=== PATIENT | male | born 1945 | race Caucasian/White ===

== ENCOUNTER 2022-05-22 14:49 | Outpatient (CLI) | payer MEDICARE, BC ==
[2022-05-22 16:27] LABS: Hemoglobin 12.6 g/dL (13.5-17.5); Mean Corpuscular HGB CONC 34.4 g/dL (32.0-36.0); Mean Corpuscular Hemoglobin 30.2 pg (27.0-33.0); Mean Corpuscular Volume 87.8 fl (81.2-95.1); Mean Platelet Volume 11.1 fl (7.4-10.4); Platelet Count 173 10x3/uL (150-450); RBC Distribution Width 15.6 % (11.5-14.5); Red Blood Cell (RBC) Count 4.17 10x6/uL (4.32-5.72); White Blood Cell (WBC) Count 7.7 10x3/uL (3.5-10.5)
[2022-05-22 16:51] LABS: PTT 27.7 sec (22.0-33.0); Prothrombin Time 10.9 sec (9.5-12.1)
[2022-05-22 16:56] LABS: Anion Gap 17 mmol/L (10-20); BUN (Urea Nitrogen) 20 mg/dL (8.4-25.7); Calc. Creatinine Clearance 0 mL/min (70-130); Calcium 9.5 mg/dL (7.8-10.44); Carbon Dioxide 25 mmol/L (23-31); Chloride 101 mmol/L (98-107); Estimated GFR 39; Glucose 252 mg/dL (83-110); Potassium 4.4 mmol/L (3.5-5.1); Sodium 139 mmol/L (136-145)
== END 2022-05-22 14:50 | disposition home or self-care (01) ==
LOC: CSHLAB 14:49
PROVIDERS: ATTEND Orthopaedic Surgery
DX: Z01.812 Encounter for preprocedural laboratory examination (principal); Z20.822 Contact with and (suspected) exposure to COVID-19; M17.12 Unilateral primary osteoarthritis, left knee
CPT/HCPCS: 80048; 85027; 85610; 85730; 87811

== ENCOUNTER 2022-05-22 15:00 | Inpatient (IN) | payer MEDICARE, BC ==
[2022-05-27] MEDS ORDERED: EPINEPHrine 1 MG/ML AMP ONE (08:12)
[2022-05-27] MEDS ORDERED: Bupivacaine 0.25% HCL 30 ML VIAL ONE (08:12)
[2022-05-27] MEDS ORDERED: Neomycin-Polymyxin 1 ML AMP ONE (08:13)
[2022-05-27] MEDS ORDERED: Vancomycin 1.5 GRAM/300 ML BAG 1.5 GM in Premix Bag 1 BAG IVPB SCH ×2 (08:30→20:30)
[2022-05-27] MEDS ORDERED: Midazolam HCl 2 mg/2 ml Vial ONE ×3 (08:46→12:56)
[2022-05-27] MEDS ORDERED: Fentanyl 100 MCG/2 ML VIAL ONE ×3 (08:47→11:37)
[2022-05-27] MEDS ORDERED: Lidocaine 1% PF 5 ML VIAL ONE ×2 (08:48→09:32)
[2022-05-27] MEDS ORDERED: Ropivacaine 0.2% HCl/PF 40 ML ONE (08:49)
[2022-05-27] MEDS ORDERED: Tranexamic Acid 1,000 MG/10 ML VIAL ONE (08:54)
[2022-05-27] MEDS ORDERED: Bupivacaine PF 0.5% 30 ML VIAL ONE (09:22)
[2022-05-27] MEDS ORDERED: Clindamycin/D5W 900 mg/50 ml Premix Bag ONE (09:31)
[2022-05-27] MEDS ORDERED: PROPOFOL 20 ML ONE (09:32)
[2022-05-27] MEDS ORDERED: Propofol 1,000 MG/100 ML VIAL IV ONE (09:34)
[2022-05-27] MEDS ORDERED: ePHEDrine Sulfate 50 MG/10 ML VIAL ONE (10:03)
[2022-05-27] MEDS ORDERED: PHENYLEPHRINE-NS 100 MCG/ML 10 ML SYRINGE ONE (10:09)
[2022-05-27] MEDS ORDERED: Ondansetron PF 4 MG/2 ML Vial ONE (11:18)
[2022-05-27] MEDS ORDERED: Promethazine HCl 25 MG/ML VIAL IM PRN (11:46)
[2022-05-27] MEDS ORDERED: Ondansetron HCl/PF 4 MG/2 ML Vial IVP PRN (11:46)
[2022-05-27] MEDS ORDERED: Promethazine HCl 25 MG/ML VIAL IVPB PRN (11:46)
[2022-05-27] MEDS ORDERED: Rocuronium Bromide 10 MG/ML (10ML VIAL) ONE (12:00)
[2022-05-27] MEDS ORDERED: Acetaminophen 325 MG TAB PO PRN (13:15)
[2022-05-27] MEDS ORDERED: Ondansetron PF 4 MG/2 ML Vial IM PRN (13:15)
[2022-05-27] MEDS ORDERED: Cepastat Lozenges 1 LOZ PO PRN (13:18)
[2022-05-27] MEDS ORDERED: Milk Of Magnesia 30 ML UDCUP PO PRN (13:18)
[2022-05-27] MEDS ORDERED: Morphine 2 MG/ML VIAL SLOW IVP PRN (13:20)
[2022-05-27] MEDS ORDERED: Dextrose 5% in Water 1,000 ML IV PRN (13:30)
[2022-05-27] MEDS ORDERED: Insulin Regular 300 UNITS/3 ML VIAL SC PRN (13:30)
[2022-05-27] MEDS ORDERED: Dextrose 50% Abboject 50 ML SYRINGE IVP PRN (13:30)
[2022-05-27] MEDS: Morphine 4 MG/ML VIAL SLOW IVP PRN ×2 (14:18→17:19)
[2022-05-27] MEDS: Sodium Chloride 0.9% 1,000 ML IV SCH ×2 (14:19→21:58)
[2022-05-27] MEDS: glyBURIDE 5 MG TAB PO SCH (17:18)
[2022-05-27] MEDS: metFORMIN 500 MG TAB PO SCH (17:18)
[2022-05-27] MEDS: Gabapentin 300 MG CAP PO SCH (21:40)
[2022-05-27] MEDS: Aspirin 81 mg Enteric Coated Tablet PO SCH (21:40)
[2022-05-27] MEDS: Atenolol 25 MG TAB PO SCH (21:40)
[2022-05-27] MEDS: Atorvastatin Calcium 10 MG TAB PO SCH (21:41)
[2022-05-28] MEDS: Morphine 4 MG/ML VIAL SLOW IVP PRN ×2 (03:25→09:11)
[2022-05-28 06:49] LABS: Hemoglobin 10.7 g/dL (13.5-17.5); Mean Corpuscular HGB CONC 33.5 g/dL (32.0-36.0); Mean Corpuscular Hemoglobin 30.6 pg (27.0-33.0); Mean Corpuscular Volume 91.1 fl (81.2-95.1); Mean Platelet Volume 10.7 fl (7.4-10.4); Platelet Count 142 10x3/uL (150-450); RBC Distribution Width 15.5 % (11.5-14.5); White Blood Cell (WBC) Count 13.4 10x3/uL (3.5-10.5)
[2022-05-28] MEDS ORDERED: Lidocaine 2% PF 100 mg/5 ml Syringe IVP SCH (07:00)
[2022-05-28] MEDS ORDERED: Lidocaine 2% Jelly 5 ML TUBE ONE (07:00)
[2022-05-28] MEDS ORDERED: Levofloxacin 500 mg/D5W 100 ml Premix Bag ONE (07:04)
[2022-05-28] MEDS: Senokot S 8.6-50 MG TAB PO SCH ×2 (09:05→20:40)
[2022-05-28] MEDS: Furosemide 40 MG TAB PO SCH (09:06)
[2022-05-28] MEDS: Clopidogrel Bisulfate 75 MG TAB PO SCH (09:06)
[2022-05-28] MEDS: Aspirin 81 mg Enteric Coated Tablet PO SCH ×2 (09:06→20:41)
[2022-05-28] MEDS: Gabapentin 300 MG CAP PO SCH ×2 (09:07→20:41)
[2022-05-28] MEDS: metFORMIN 500 MG TAB PO SCH ×2 (09:07→09:09)
[2022-05-28] MEDS: Multivitamin W/ Minerals 1 TAB PO SCH (09:08)
[2022-05-28] MEDS: Tamsulosin HCl 0.4 MG CAP PO SCH (09:08)
[2022-05-28] MEDS: Allopurinol 100 MG TAB PO SCH (09:09)
[2022-05-28] MEDS: Cyanocobalamin (Vitamin B-12) 1,000 MCG TAB PO SCH (09:09)
[2022-05-28] MEDS: Atenolol 25 MG TAB PO SCH ×2 (09:20→20:40)
[2022-05-28] MEDS: glyBURIDE 5 MG TAB PO SCH ×2 (09:30→16:10)
[2022-05-28] MEDS: Ibuprofen 600 MG TAB PO PRN (13:10)
[2022-05-28] MEDS: Atorvastatin Calcium 10 MG TAB PO SCH (20:40)
[2022-05-29 03:48] LABS: Hemoglobin 10.1 g/dL (13.5-17.5); Mean Corpuscular HGB CONC 34.4 g/dL (32.0-36.0); Mean Corpuscular Hemoglobin 30.7 pg (27.0-33.0); Mean Corpuscular Volume 89.4 fl (81.2-95.1); Mean Platelet Volume 10.7 fl (7.4-10.4); Platelet Count 119 10x3/uL (150-450); RBC Distribution Width 15.6 % (11.5-14.5); Red Blood Cell (RBC) Count 3.29 10x6/uL (4.32-5.72)
[2022-05-29] MEDS: Aspirin 81 mg Enteric Coated Tablet PO SCH ×2 (09:10→21:06)
[2022-05-29] MEDS: Atenolol 25 MG TAB PO SCH ×2 (09:10→21:05)
[2022-05-29] MEDS: Furosemide 40 MG TAB PO SCH (09:10)
[2022-05-29] MEDS: Allopurinol 100 MG TAB PO SCH (09:10)
[2022-05-29] MEDS: Multivitamin W/ Minerals 1 TAB PO SCH (09:10)
[2022-05-29] MEDS: Senokot S 8.6-50 MG TAB PO SCH ×2 (09:10→21:06)
[2022-05-29] MEDS: Tamsulosin HCl 0.4 MG CAP PO SCH (09:10)
[2022-05-29] MEDS: glyBURIDE 5 MG TAB PO SCH ×2 (09:10→17:52)
[2022-05-29] MEDS: Clopidogrel Bisulfate 75 MG TAB PO SCH (09:10)
[2022-05-29] MEDS: Cyanocobalamin (Vitamin B-12) 1,000 MCG TAB PO SCH (09:10)
[2022-05-29] MEDS: Gabapentin 300 MG CAP PO SCH ×2 (09:10→21:06)
[2022-05-29] MEDS: metFORMIN 500 MG TAB PO SCH ×2 (09:10→17:52)
[2022-05-29] MEDS: Atorvastatin Calcium 10 MG TAB PO SCH (21:06)
[2022-05-30 04:50] LABS: Mean Corpuscular HGB CONC 34.6 g/dL (32.0-36.0); Mean Corpuscular Hemoglobin 30.7 pg (27.0-33.0); Mean Corpuscular Volume 88.7 fl (81.2-95.1); Mean Platelet Volume 11.2 fl (7.4-10.4); Platelet Count 128 10x3/uL (150-450); RBC Distribution Width 15.2 % (11.5-14.5); Red Blood Cell (RBC) Count 3.26 10x6/uL (4.32-5.72); White Blood Cell (WBC) Count 10.9 10x3/uL (3.5-10.5)
[2022-05-30] MEDS: glyBURIDE 5 MG TAB PO SCH ×2 (08:19→17:40)
[2022-05-30] MEDS: Allopurinol 100 MG TAB PO SCH (08:20)
[2022-05-30] MEDS: Aspirin 81 mg Enteric Coated Tablet PO SCH ×2 (08:20→20:49)
[2022-05-30] MEDS: metFORMIN 500 MG TAB PO SCH ×2 (08:20→17:40)
[2022-05-30] MEDS: Gabapentin 300 MG CAP PO SCH ×2 (08:21→20:50)
[2022-05-30] MEDS: Clopidogrel Bisulfate 75 MG TAB PO SCH (08:21)
[2022-05-30] MEDS: Furosemide 40 MG TAB PO SCH (08:23)
[2022-05-30] MEDS: Atenolol 25 MG TAB PO SCH ×2 (08:23→20:49)
[2022-05-30] MEDS: Multivitamin W/ Minerals 1 TAB PO SCH (08:24)
[2022-05-30] MEDS: Cyanocobalamin (Vitamin B-12) 1,000 MCG TAB PO SCH (08:24)
[2022-05-30] MEDS: Senokot S 8.6-50 MG TAB PO SCH ×2 (08:24→20:50)
[2022-05-30] MEDS: Ibuprofen 600 MG TAB PO PRN (08:24)
[2022-05-30] MEDS: Tamsulosin HCl 0.4 MG CAP PO SCH (08:25)
[2022-05-30 12:55] VITALS: BMI 29.7
[2022-05-30] MEDS: Atorvastatin Calcium 10 MG TAB PO SCH (20:50)
[2022-05-31 04:26] LABS: Hemoglobin 11.4 g/dL (13.5-17.5); Mean Corpuscular HGB CONC 35.6 g/dL (32.0-36.0); Mean Corpuscular Hemoglobin 30.9 pg (27.0-33.0); Mean Corpuscular Volume 86.7 fl (81.2-95.1); Mean Platelet Volume 10.5 fl (7.4-10.4); Platelet Count 152 10x3/uL (150-450); RBC Distribution Width 15.2 % (11.5-14.5); Red Blood Cell (RBC) Count 3.69 10x6/uL (4.32-5.72); White Blood Cell (WBC) Count 10.4 10x3/uL (3.5-10.5)
[2022-05-31] MEDS: Tamsulosin HCl 0.4 MG CAP PO SCH (09:19)
[2022-05-31] MEDS: Cyanocobalamin (Vitamin B-12) 1,000 MCG TAB PO SCH (09:19)
[2022-05-31] MEDS: metFORMIN 500 MG TAB PO SCH ×2 (09:19→18:12)
[2022-05-31] MEDS: Atenolol 25 MG TAB PO SCH ×2 (09:19→20:53)
[2022-05-31] MEDS: Gabapentin 300 MG CAP PO SCH ×2 (09:20→20:54)
[2022-05-31] MEDS: Aspirin 81 mg Enteric Coated Tablet PO SCH ×2 (09:20→20:53)
[2022-05-31] MEDS: Multivitamin W/ Minerals 1 TAB PO SCH (09:21)
[2022-05-31] MEDS: Senokot S 8.6-50 MG TAB PO SCH ×2 (09:21→20:53)
[2022-05-31] MEDS: Allopurinol 100 MG TAB PO SCH (09:59)
[2022-05-31] MEDS: glyBURIDE 5 MG TAB PO SCH ×2 (09:59→18:11)
[2022-05-31] MEDS: Clopidogrel Bisulfate 75 MG TAB PO SCH (09:59)
[2022-05-31] MEDS: Furosemide 40 MG TAB PO SCH (09:59)
[2022-05-31] MEDS: Ibuprofen 600 MG TAB PO PRN (18:13)
[2022-05-31] MEDS: Atorvastatin Calcium 10 MG TAB PO SCH (20:54)
[2022-06-01] MEDS: Gabapentin 300 MG CAP PO SCH (08:53)
[2022-06-01] MEDS: Atenolol 25 MG TAB PO SCH (08:53)
[2022-06-01] MEDS: Tamsulosin HCl 0.4 MG CAP PO SCH (08:54)
[2022-06-01] MEDS: Furosemide 40 MG TAB PO SCH (08:54)
[2022-06-01] MEDS: glyBURIDE 5 MG TAB PO SCH (08:54)
[2022-06-01] MEDS: Ibuprofen 600 MG TAB PO PRN (08:54)
[2022-06-01] MEDS: Senokot S 8.6-50 MG TAB PO SCH (08:55)
[2022-06-01] MEDS: Aspirin 81 mg Enteric Coated Tablet PO SCH (08:55)
[2022-06-01] MEDS: Multivitamin W/ Minerals 1 TAB PO SCH (08:56)
[2022-06-01] MEDS: metFORMIN 500 MG TAB PO SCH (08:56)
[2022-06-01] MEDS: Cyanocobalamin (Vitamin B-12) 1,000 MCG TAB PO SCH (10:07)
[2022-06-01] MEDS: Allopurinol 100 MG TAB PO SCH (10:07)
[2022-06-01] MEDS: Clopidogrel Bisulfate 75 MG TAB PO SCH (10:07)
[2022-06-01 13:16] VITALS: BP 128/60; TEMP 97.1
== END 2022-06-01 15:30 | disposition home or self-care (01) | DRG 470 ==
LOC: CSHERHOLD 05-27 06:29 → CSHTELE 05-27 13:28 → EDSTATUS 05-27 15:00
PROVIDERS: ADMIT Orthopaedic Surgery; ATTEND Orthopaedic Surgery
PROC: 0SRD0J9 Replacement of Left Knee Joint with Synthetic Substitute, Cemented, Open Approach (ICD-10-PCS; principal; 2022-05-27)
DX: M17.12 Unilateral primary osteoarthritis, left knee (principal); I10 Essential (primary) hypertension; E11.9 Type 2 diabetes mellitus without complications; F03.90 Unspecified dementia, unspecified severity, without behavioral disturbance, psychotic disturbance, mood disturbance, and anxiety; Z20.822 Contact with and (suspected) exposure to COVID-19; R33.9 Retention of urine, unspecified; Z88.1 Allergy status to other antibiotic agents; Z88.0 Allergy status to penicillin; Z88.6 Allergy status to analgesic agent; Z91.048 Other nonmedicinal substance allergy status; Z79.899 Other long term (current) drug therapy; Z79.84 Long term (current) use of oral hypoglycemic drugs; Z79.02 Long term (current) use of antithrombotics/antiplatelets; Z86.73 Personal history of transient ischemic attack (TIA), and cerebral infarction without residual deficits; Z95.1 Presence of aortocoronary bypass graft
CPT/HCPCS: 36415; 36416; 85027; C1713; C1776; J0171; J1815; J1956; J2001; J2250; J2270; J2405; J2704; J2795; J3010; J3370; J3490; J7050; S0020; U0003; U0005